=== PATIENT | female | born 1945 | race Caucasian/White ===

== ENCOUNTER → 2016-06-30 | Outpatient (CLI) | payer MEDICARE, OTHER ==
--- NOTE | 2016-06-30 09:59 | US ---
EXAMINATION TYPE: US abdomen complete DATE OF EXAM: 06/30/2016 8:42 AM COMPARISON: NONE CLINICAL HISTORY: Abn Kidney Function R94.4,Abn Liver Function R94.5. cholecystectomy 2004 EXAM MEASUREMENTS: Liver Length: 14.2 cm Gallbladder Wall: Surgically absent cm CBD: 1.2 cm Spleen: 12.4 cm Right Kidney: 10.8 x5.1 x 4.7 cm Left Kidney: 9.7 x5.2x 4.6x cm Findings: Pancreas: not well defined Liver: wnl Gallbladder: Surgically absent Evidence for sonographic Cody's sign: no CBD: dilated at 1.2 cm Spleen: wnl Right Kidney: No hydronephrosis or masses seen Left Kidney: No hydronephrosis or masses seen Upper IVC: wnl Abd Aorta: Partially obscured by overlying bowel gas, normal measurements on those portions seen The liver is homogenous. The intrahepatic portion of the IVC and proximal abdominal aorta are within normal limits. The gallbladder is surgically absent. Common bile duct is unremarkable. The visualiz ed portions of the pancreas are homogenous. The spleen is unremarkable. Kidneys are symmetric and f ree of hydronephrosis. No renal lesions are seen. IMPRESSION: Unremarkable evaluation.
== END | disposition home or self-care (01) ==
LOC: RADUSWWP 08:07
PROVIDERS: ATTEND Internal Medicine Geriatric Medicine
DX: R94.4 Abnormal results of kidney function studies (principal); R94.5 Abnormal results of liver function studies
CPT/HCPCS: 76700

== ENCOUNTER 2017-10-20 10:55 | Day surgery (SDC) | payer MEDICARE, OTHER ==
[2017-10-17 14:27] VITALS: BMI 26.6
[~2017-10-20 10:55] MED LIST: LACTATED RINGERS 1,000 ML IV SCH
[2017-10-20] MEDS ORDERED: LIDOCAINE 1% 20 ML VIAL (10MG/ML) FOR IV START INTRADERMA ONE (11:47)
[2017-10-20 11:49] VITALS: RESP 16; TEMP 97.9
[2017-10-20] MEDS ORDERED: LIDOCAINE 1% INJ 10MG/ML (20 ML MDV) ONE (11:49)
[2017-10-20] MEDS ORDERED: LABETALOL 5 MG/ML VIAL MDV ONE (11:49)
[2017-10-20] MEDS ORDERED: PROPOFOL 10 MG/ML 20 ML VIAL IV ONE (11:49)
--- NOTE | 2017-10-20 11:51 | P.GSHP ---
History of Present Illness H&P Date: 10/20/17 Chief Complaint: Colon Screening Patient here today for colonoscopy. Last colonoscopy 10 years ago. No bowel related complaints. No family history of colon cancer. Past Medical History Past Medical History: Osteoarthritis (OA) Additional Past Medical History / Comment(s): Swelling in both ankles History of Any Multi-Drug Resistant Organisms: None Reported Past Surgical History: Adenoidectomy, Breast Surgery, Cholecystectomy, Orthopedic Surgery, Tonsillectomy, Tubal Ligation Additional Past Surgical History / Comment(s): Multiple foot surgeries- R foot, emile. knee surg., Carpal tunnel bilat., breast biopsy Past Anesthesia/Blood Transfusion Reactions: No Reported Reaction Smoking Status: Never smoker - Past Family History Father Family Medical History: Cancer Additional Family Medical History / Comment(s): Lung Medications and Allergies Home Medications Medication Instructions Recorded Confirmed Type Hydrochlorothiazide [Hydrodiuril] 25 mg PO DAILY 04/20/16 10/20/17 History Multivitamins, Thera [Multivitamin] 1 tab PO DAILY 04/20/16 10/20/17 History Escitalopram [Lexapro] 20 mg PO DAILY 10/17/17 10/20/17 History [place]-3 Fatty Acids/Fish Oil [Fish 1 each PO DAILY 10/17/17 10/20/17 History Oil 1,000 mg Softgel] Allergies Allergy/AdvReac Type Severity Reaction Status Date / Time acetaminophen [From Percocet] Allergy Nausea & Verified 10/20/17 11:31 Vomiting oxycodone [From Percocet] Allergy Nausea & Verified 10/20/17 11:31 Vomiting Surgical - Exam Vital Signs Temp Pulse Resp BP Pulse Ox 97.9 F 52 L 16 153/74 99 10/20/17 11:48 10/20/17 11:48 10/20/17 11:48 10/20/17 11:48 10/20/17 11:48 Physical exam: General: Well-developed, well-nourished HEENT: Normocephalic, sclerae nonicteric Abdomen: Nontender, nondistended Extremities: No edema Neuro: Alert and oriented Assessment and Plan (1) Colon cancer screening Narrative/Plan: Will proceed with colonoscopy at this time. Current Visit: Yes Status: Acute Code(s): Z12.11 - ENCOUNTER FOR SCREENING FOR MALIGNANT NEOPLASM OF COLON SNOMED Code(s): 864209843
--- NOTE | 2017-10-20 12:13 | P.PCN ---
Date of Procedure: 10/20/17 Procedure(s) Performed: PREOPERATIVE DIAGNOSIS: Colon cancer screening POSTOPERATIVE DIAGNOSIS: Transverse colon polyp, diverticulosis PROCEDURE: Colonoscopy with biopsy ANESTHESIA: MAC SURGEON: Mahesh Multani M.D. SPECIMENS: Transverse colon polyp ENDOSCOPIC PROCEDURE: The patient was placed on the endoscopy table in the left decubitus position. The Olympus colonoscope was inserted into the anus and passed under direct visualization to the base of the cecum. The appendiceal orifice was visualized. From that point the scope was slowly withdrawn inspecting all surfaces carefully. There were no neoplastic inflammatory or polypoid lesions throughout the cecum and ascending colon. In the transverse colon distally a small polyp was seen and biopsied using the cold biopsy forceps. The remainder of the transverse descending sigmoid and rectum appeared normal. There was mild left-sided diverticulosis. Digital rectal examination was normal. The patient was taken to the recovery room in stable condition per anesthesia guidelines. RECOMMENDATIONS: Await biopsy results.
[2017-10-20 12:37] VITALS: BP 135/69; PULSE 55
== END 2017-10-20 13:09 | disposition home or self-care (01) ==
LOC: ORWHC2ENDO 10:55
PROVIDERS: ATTEND Surgery
DX: Z12.11 Encounter for screening for malignant neoplasm of colon (principal); K63.5 Polyp of colon; K57.30 Diverticulosis of large intestine without perforation or abscess without bleeding; I10 Essential (primary) hypertension; F32.9 Major depressive disorder, single episode, unspecified; M19.90 Unspecified osteoarthritis, unspecified site; Z79.899 Other long term (current) drug therapy; Z88.6 Allergy status to analgesic agent; Z88.5 Allergy status to narcotic agent; Z98.51 Tubal ligation status
CPT/HCPCS: 45380; J2001; J2704; 88305

== ENCOUNTER → 2020-10-27 | Outpatient (CLI) | payer MEDICARE, OTHER ==
--- NOTE | 2020-10-28 11:09 | BD ---
EXAMINATION TYPE: Axial Bone Density DATE OF EXAM: 10/27/2020 COMPARISON: Prior bone scan May 11, 2017 CLINICAL HISTORY: Postmenopausal female. Age related osteoporosis. Height: 5 FT 6 1/4 IN Weight: 157 FRAX RISK QUESTIONS: Alcohol (3 or more units per day): NO Family History (Parent hip fracture): NO Glucocorticoids (More than 3mos): NO (Ex: prednisone, prednisolone, methylprednisolone, dexamethasone, and hydrocortisone). History of Fracture in Adulthood: YES Secondary Osteoporosis: 1. Type 1 Diabetes: NO 2. Hyperthyroidism: NO 3. Menopause before 45: NO 4. Malnutrition: NO 5. Chronic liver disease: NO Rheumatoid Arthritis: NO Current Tobacco Use: NO RISK FACTORS HISTORY OF: Surgery to Spine/Hip(right/left)/Wrist (right/left): NO Family History of Osteoporosis: NO Active: YES Diet low in dairy products/other sources of calcium: NO Postmenopausal woman: AGE 56 Take estrogen and/or progesterone medications: NO Lost more than 2 inches in height since high school: YES Poor Health: RECENT MASSIVE HEART ATTACK 3 STENTS MEDICATIONS: Additional Medications: ASPIRIN, LIPITOR, FUROSEMIDE, METOPROLOL,POTASSIUM CHLORIDE, SACUBITRIL/VALSA RTAN, BRILINTA Additional History: EXAM MEASUREMENTS: Bone mineral densitometry was performed using the [employer] System. Bone mineral density as measured about the Lumbar spine is: ----- L1-L4(G/cm2): 1.070 T Score Values are as follows: ----- L2: -0.6 ----- L3: -0.2 ----- L4: -0.9 ----- L1-L4: -0.9 Bone mineral density has: DECREASED -1.6 % since study of: 2016 Bone mineral density about the R hip (g/cm2): 0.714 Bone mineral density about the L hip (g/cm2): 0.711 T Score values are as follows: -----R Neck: -2.3 -----L Neck: -2.4 -----R Total: -2.0 -----L Total: -1.9 Bone mineral density has: DECREASED -3.8 % since study of: 2016 IMPRESSION: Osteopenia (T Score between -2.5 and -1) remains present. Bone density decreased from prior. There remains slightly increased risk of fracture and the patient may be considered for treatment. Re-Screen 2-5 years. NOTE: T-SCORE=SD OF THE YOUNG ADULT MEAN.
--- NOTE | 2020-10-30 07:40 | MM ---
Reason for exam: screening (asymptomatic). Last mammogram was performed 1 year and 10 months ago. History: Patient is postmenopausal. Excisional biopsy of the left breast. Physical Findings: A clinical breast exam by your physician is recommended on an annual basis and results should be correlated with mammographic findings. MG 3D Screening Mammo W/Cad Bilateral CC and MLO view(s) were taken. Prior study comparison: January 08, 2019, bilateral MG 3d screening mammo w/cad. May 11, 2017, bilateral MG screening mammo w CAD. There are scattered fibroglandular densities. Bilateral axillary lymph nodes most likely reactive. No significant changes when compared with prior studies. ASSESSMENT: Benign, BI-RAD 2 RECOMMENDATION: Routine screening mammogram of both breasts in 1 year.
== END | disposition home or self-care (01) ==
LOC: RADMAMWWP 12:18
PROVIDERS: ATTEND Internal Medicine Geriatric Medicine
DX: Z12.31 Encounter for screening mammogram for malignant neoplasm of breast (principal); M85.80 Other specified disorders of bone density and structure, unspecified site; M81.0 Age-related osteoporosis without current pathological fracture; Z98.890 Other specified postprocedural states; Z78.0 Asymptomatic menopausal state
CPT/HCPCS: 77063; 77067; 77080

== ENCOUNTER → 2022-01-27 | Outpatient (CLI) | payer MEDICARE, OTHER ==
--- NOTE | 2022-01-28 15:14 | MM ---
Reason for Exam: Screening (asymptomatic). Last mammogram was performed 1 year(s) and 3 month(s) ago. Patient History: Menarche at age 15. First Full-Term at age 20. Postmenopausal. Excisional Biopsy on the Left side. Risk Values: Yamile 5 year model risk: 1.4%. NCI Lifetime model risk: 3.0%. Prior Study Comparison: 05/11/2017 Bilateral Screening Mammogram, [facility]. 01/08/2019 Bilateral Screening Mammogram, [facility]. 10/27/2020 Bilateral Screening Mammogram, [facility]. Tissue Density: There are scattered fibroglandular densities. Findings: Analyzed By CAD. There appears to be some vascular calcification in the mid right breast. There is a stable nodule within the upper outer left mid breast. No suspicious groups of microcalcifications, spiculated or lobular masses, architectural distortion or other secondary signs of malignancy are mammographically apparent. Overall Assessment: Benign, BI-RAD 2 Management: Screening Mammogram of both breasts in 1 year. A negative mammogram report should not preclude additional follow up of suspicious palpable abnormalities. Patient should continue monthly self breast exam. A clinical breast exam by your physician is recommended on an annual basis and results should be correlated with mammographic findings. Electronically signed and approved by: Abdoulaye Turner D.O. Radiologis
== END | disposition home or self-care (01) ==
LOC: RADMAMWWP 15:51
PROVIDERS: ATTEND Internal Medicine Geriatric Medicine
DX: Z12.31 Encounter for screening mammogram for malignant neoplasm of breast (principal)
CPT/HCPCS: 77063; 77067

== ENCOUNTER → 2022-05-30 | Outpatient (CLI) | payer MEDICARE, OTHER ==
--- NOTE | 2022-05-30 08:43 | US ---
EXAMINATION TYPE: US abdomen complete DATE OF EXAM: 05/30/2022 COMPARISON: 06/30/2016 CLINICAL HISTORY: R94.5 ABNORMAL RESULTS OF LIVER FUNCTION STUDIES. Abnormal labs. GB removed. Stephanie ent states doctor just lowered her lipitor. TECHNIQUE: Multiple sonographic images of the abdomen are obtained. FINDINGS: EXAM MEASUREMENTS: Liver Length: 13.9 cm CBD: 0.8 cm Spleen: 9.5 cm Right Kidney: 10.4 x 4.2 x 4.5 cm Left Kidney: 8.9 x 3.8 x 5.3 cm Pancreas: wnl Liver: wnl Gallbladder: Surgically absent Evidence for sonographic Cody's sign: neg CBD: wnl Spleen: wnl Right Kidney: No hydronephrosis or masses seen Left Kidney: No hydronephrosis or masses seen. Appears smaller in size compared to contralateral ki dney. Upper IVC: wnl Abd Aorta: No AAA visualized in portions seen The liver is homogenous. The intrahepatic portion of the IVC and proximal abdominal aorta are within normal limits. Common bile duct is within normal limits. The visualized portions of the pancreas a re homogenous. The spleen is unremarkable. Kidneys are symmetric and free of hydronephrosis. No re nal lesions are seen. IMPRESSION: No evidence for acute process.
== END | disposition home or self-care (01) ==
LOC: RADUSWWP 07:57
PROVIDERS: ATTEND Internal Medicine Geriatric Medicine
DX: R94.5 Abnormal results of liver function studies (principal)
CPT/HCPCS: 76700

== ENCOUNTER → 2023-07-03 | Outpatient (CLI) | payer MEDICARE, OTHER ==
--- NOTE | 2023-07-03 18:43 | BD ---
EXAMINATION TYPE: Axial Bone Density DATE OF EXAM: 07/03/2023 CLINICAL HISTORY: 77 years old Female. ICD-10 CODE: M81.0 AGE-RELATED OSTEOPOROSI Height: 65in Weight: 160lb FRAX RISK QUESTIONS: Family History (Parent hip fracture): yes History of Fracture in Adulthood: yes Secondary Osteoporosis: RISK FACTORS HISTORY OF: Surgery to Spine/Hip(right/left)/Wrist (right/left): lumbar When: 2022 MEDICATIONS: EXAM MEASUREMENTS: Bone mineral densitometry was performed using the [employer] System. Bone mineral density as measured about the Lumbar spine is: ----- L1-L4(G/cm2): 0.996 T Score Values are as follows: ----- L1: -2.2 ----- L2: -1.5 ----- L3: -1.0 ----- L4: -1.6 ----- L1-L4: -1.5 Z Score Values are as follows: ----- L1: -0.7 ----- L2: 0.0 ----- L3: 0.5 ----- L4: -0.1 ----- L1-L4: 0.0 Bone mineral density has: Decreased -6.9% since study of: 10-27-20 Bone mineral density about the R hip (g/cm2): 0.717 Bone mineral density about the L hip (g/cm2): 0.727 T Score values are as follows: -----R Neck: -2.3 -----L Neck: -2.3 -----R Total: -2.3 -----L Total: -2.2 Z Score values are as follows: -----R Neck: -0.5 -----L Neck: -0.5 -----R Total: -0.7 -----L Total: -0.6 Bone mineral density has: Decreased -5.7% since study of: 10-27-20 FRAX%s: The graph provided illustrates a 30.5% chance for a major osteoporotic fx and a 19.9% chance for the hips probability for fx in 10 years time. IMPRESSION: Osteopenia (T Score between -2.5 and -1). There is slightly increased risk of fracture and the patient may be considered for treatment. Re-Screen 2-5 years. NOTE: T-SCORE=SD OF THE YOUNG ADULT MEAN.
--- NOTE | 2023-07-04 08:20 | MM ---
Reason for Exam: Screening (asymptomatic). Last mammogram was performed 1 year(s) and 5 month(s) ago. Patient History: Menarche at age 15. First Full-Term at age 20. Postmenopausal. Excisional Biopsy on the Left side. Daughter had breast cancer at or over age 50. Risk Values: Yamile 5 year model risk: 3.5%. NCI Lifetime model risk: 7.1%. Prior Study Comparison: 01/19/2015 Bilateral Screening Mammogram, [facility]. 05/09/2016 Bilateral Screening Mammogram, [facility]. 05/11/2017 Bilateral Screening Mammogram, [facility]. 01/08/2019 Bilateral Screening Mammogram, [facility]. 10/27/2020 Bilateral Screening Mammogram, [facility]. 01/27/2022 Bilateral MG 3D screening mammo w/cad, [facility]. Tissue Density: There are scattered fibroglandular densities. Findings: Analyzed By CAD. There is no suspicious group of microcalcifications or new suspicious mass in either breast. Overall Assessment: Benign, BI-RAD 2 Management: Screening Mammogram of both breasts in 1 year. . Patient should continue monthly self-breast exams. A clinical breast exam by your physician is recommended on an annual basis. This exam should not preclude additional follow-up of suspicious palpable abnormalities. Note on Yamile scores and lifetime risk: 1. A Yamile score greater than 3% is considered moderate risk. If this is the case, consider specialist referral to assess eligibility for a risk reducing agent. 2. If overall lifetime risk for the development of breast cancer is 20% or higher, the patient may qualify for future screening with alternating mammogram and breast MRI. Electronically signed and approved by: Easton Gustafson M.D. Radiologis
== END | disposition home or self-care (01) ==
LOC: RADMAMWWP 12:38
PROVIDERS: ATTEND Internal Medicine Geriatric Medicine
DX: Z12.31 Encounter for screening mammogram for malignant neoplasm of breast (principal); M81.0 Age-related osteoporosis without current pathological fracture; M85.89 Other specified disorders of bone density and structure, multiple sites; Z80.3 Family history of malignant neoplasm of breast; Z78.0 Asymptomatic menopausal state
CPT/HCPCS: 77063; 77067; 77080

== ENCOUNTER → 2024-09-09 | Outpatient (CLI) | payer MEDICARE, OTHER ==
--- NOTE | 2024-09-09 16:54 | MM ---
Reason for Exam: Screening (asymptomatic). Last mammogram was performed 1 year(s) and 3 month(s) ago. Patient History: Menarche at age 15. First Full-Term at age 20. Postmenopausal. Excisional Biopsy on the Left side. Daughter had breast cancer at or over age 50. Risk Values: Yamile 5 year model risk: 3.5%. NCI Lifetime model risk: 6.6%. Prior Study Comparison: 10/27/2020 Bilateral Screening Mammogram, [facility]. 01/27/2022 Bilateral MG 3D screening mammo w/cad, [facility]. 07/03/2023 Bilateral MG 3D screening mammo w/cad, [facility]. Tissue Density: There are scattered areas of fibroglandular density. Findings: Analyzed By CAD. Chronic nodularity on the left. There is no suspicious group of microcalcifications or new suspicious mass in either breast. Overall Assessment: Benign, BI-RAD 2 Management: Screening Mammogram of both breasts in 1 year. See note below in regards to the patient's increased 5 year Yamile score. Patient should continue monthly self-breast exams. A clinical breast exam by your physician is recommended on an annual basis. This exam should not preclude additional follow-up of suspicious palpable abnormalities. Note on Yamile scores and lifetime risk: 1. A Yamile score greater than 3% is considered moderate risk. If this is the case, consider specialist referral to assess eligibility for a risk reducing agent. 2. If overall lifetime risk for the development of breast cancer is 20% or higher, the patient may qualify for future screening with alternating mammogram and breast MRI. [facility], , 09/09/2024 4:51 PM. Electronically signed and approved by: Amilcar Carney M.D. Radiologist
== END | disposition home or self-care (01) ==
LOC: RADMAMWWP 14:28
PROVIDERS: ATTEND Internal Medicine Geriatric Medicine
DX: Z12.31 Encounter for screening mammogram for malignant neoplasm of breast (principal); R92.323 Mammographic fibroglandular density, bilateral breasts; Z78.0 Asymptomatic menopausal state; Z80.3 Family history of malignant neoplasm of breast
CPT/HCPCS: 77063; 77067